=== PATIENT | male | born 1990 | race African-American/Black ===

== ENCOUNTER 2019-05-13 21:39 | Emergency (ER) | payer MEDICAID, OTHER ==
[2019-05-14] MEDS ORDERED: Ondansetron ODT TAB* 4 MG PO ONE (00:29)
[2019-05-14 01:01] LABS: ABS Basophils 0.1 10^3/ul (0-0.2); ABS Eosinophils 0.4 10^3/ul (0-0.6); ABS Lymphocytes 3.1 10^3/ul (1.0-4.8); ABS Monocytes 0.7 10^3/ul (0-0.8); ABS Neutrophils 5.6 10^3/ul (1.5-7.7); Eosinophil % 3.7 %; Hematocrit 46 % (42-52); Hemoglobin 15.7 g/dL (14.0-18.0); Lymphocyte % 31.9 %; Mean Corpuscular HGB Conc 34 g/dL (31-36); Mean Corpuscular Hemoglobin 30 pg (27-31); Mean Corpuscular Volume 87 fL (80-94); Mean Platelet Volume 8.5 fL (7.4-10.4); Nucleated Red Blood Cells % 0.1; Platelet Count 210 10^3/uL (150-450); Red Blood Count 5.29 10^6 /uL (4.18-5.48); Red Cell Distribution Width 14 % (10-15); White Blood Count 9.9 10^3/uL (3.5-10.8)
--- NOTE | 2019-05-14 01:14 | ED ---
Nausea/Vomiting/Diarrhea HPI - HPI Summary HPI Summary: Patient complains of abdominal pain and nausea and vomiting after eating 3 days. Abdominal pain described as epigastric, intermittent, lasting 10-20 minutes at a time after eating, worse /10. Patient has history of daily marijuana use. Patient states he has used Pepto-Bismol which provides relief. Denies fever, cough, sore throat, CP, SOB, diarrhea, change in urine, change in BM, penile or testicular symptoms. Medical history is asthma. Abdominal surgical history is none. - History of Current Complaint Chief Complaint: EDNauseaVomitDiarrh Stated Complaint: ABD PAIN PER PT Time Seen by Provider: 05/14/19 00:27 Hx Obtained From: Patient Onset/Duration: Gradual Onset, Lasting Days Timing: Intermittent Episodes Lasting: Severity Initially: Moderate Severity Currently: Moderate Pain Intensity: 7 Pain Scale Used: 0-10 Numeric Location: Diffuse Character: Cramping Aggravating Factor(s): Food Alleviating Factor(s): Antacids Vomiting Frequency: At Meal Time Vomiting Characteristics: Nonbilious Diarrhea Presence: No - Allergies/Home Medications Allergies/Adverse Reactions: Allergies Allergy/AdvReac Type Severity Reaction Status Date / Time No Known Allergies Allergy Verified 05/13/19 21:45 PMH/Surg Hx/FS Hx/Imm Hx Endocrine/Hematology History: Denies: Hx Anticoagulant Therapy Cardiovascular History: Denies: Hx Pacemaker/ICD History: Denies: Hx Dialysis Sensory History: Denies: Hx Eye Prosthesis Opthamlomology History: Denies: Hx Legally Blind EENT History: Denies: Hx Deafness Neurological History: Denies: Hx Dementia Infectious Disease History: No Infectious Disease History: Denies: Traveled Outside the [place] in Last 30 Days - Family History Known Family History: Positive: Non-Contributory - Social History Alcohol Use: Weekly Substance Use Type: Reports: Marijuana Substance Use Comment - Amount & Last Used: daily Smoking Status (MU): Heavy Every Day Tobacco Smoker Review of Systems Constitutional: Negative Eyes: Negative ENT: Negative Cardiovascular: Negative Respiratory: Negative Positive: Abdominal Pain, Vomiting, Nausea Genitourinary: Negative Musculoskeletal: Negative Skin: Negative Neurological: Negative Psychological: Normal All Other Systems Reviewed And Are Negative: Yes Physical Exam - Summary Physical Exam Summary: Abdomen soft nontender. No active vomiting here in the ED. Triage Information Reviewed: Yes Vital Signs On Initial Exam: Initial Vitals Temp Pulse Resp BP Pulse Ox 99.5 F 88 16 150/101 98 05/13/19 21:41 05/13/19 21:41 05/13/19 21:41 05/13/19 21:41 05/13/19 21:41 Vital Signs Reviewed: Yes Appearance: Positive: Well-Appearing Skin: Positive: Warm Head/Face: Positive: Normal Head/Face Inspection Eyes: Positive: Normal Neck: Positive: Supple Respiratory/Lung Sounds: Positive: Clear to Auscultation Cardiovascular: Positive: Normal Abdomen Description: Positive: Nontender Musculoskeletal: Positive: Normal Neurological: Positive: Normal Psychiatric: Positive: Normal AVPU Assessment: Alert - [place] Coma Scale Best Eye Response: 4 - Spontaneous Best Motor Response: 6 - Obeys Commands Best Verbal Response: 5 - Oriented Coma Scale Total: 15 Procedures - Sedation Patient Received Moderate/Deep Sedation with Procedure: No Diagnostics - Vital Signs Vital Signs Temp Pulse Resp BP Pulse Ox 05/13/19 23:44 98.7 F 87 16 153/87 99 05/13/19 21:41 99.5 F 88 16 150/101 98 - Laboratory Lab Results: Lab Results 05/14/19 Range/Units 00:53 WBC 9.9 (3.5-10.8) 10^3/uL RBC 5.29 (4.18-5.48) 10^6 /uL Hgb 15.7 (14.0-18.0) g/dL Hct 46 (42-52) % MCV 87 (80-94) fL MCH 30 (27-31) pg MCHC 34 (31-36) g/dL RDW 14 (10-15) % Plt Count 210 (150-450) 10^3/uL MPV 8.5 (7.4-10.4) fL Neut % (Auto) 56.4 % Lymph % (Auto) 31.9 % Green % (Auto) 6.9 % Eos % (Auto) 3.7 % Baso % (Auto) 1.1 % Absolute Neuts (auto) 5.6 (1.5-7.7) 10^3/ul Absolute Lymphs (auto) 3.1 (1.0-4.8) 10^3/ul Absolute Monos (auto) 0.7 (0-0.8) 10^3/ul Absolute Eos (auto) 0.4 (0-0.6) 10^3/ul Absolute Basos (auto) 0.1 (0-0.2) 10^3/ul Absolute Nucleated RBC 0.0 10^3/ul Nucleated RBC % 0.1 Result Diagrams: 05/14/19 00:53 05/14/19 00:53 Lab Statement: Any lab studies that have been ordered have been reviewed, and results considered in the medical decision making process. Naus/Vom/Diarrhea Course/Dx - Course Course Of Treatment: Patient complains of abdominal pain and nausea and vomiting after eating 3 days. Abdominal pain described as epigastric, intermittent, lasting 10-20 minutes at a time after eating, worse 05/14. Patient has history of daily marijuana use. Patient states he has used Pepto- Bismol which provides relief. Denies fever, cough, sore throat, CP, SOB, diarrhea, change in urine, change in BM, penile or testicular symptoms. Medical history is asthma. Abdominal surgical history is none. Vital signs within normal limits. Labs unremarkable. Patient having no active pain here in the ED. Patient states that he wishes to leave, will follow-up with urgent care in the morning. - Differential Dx/Diagnosis Provider Diagnosis: Nausea & vomiting Condition At Discharge: Stable Discharge ED - Sign-Out/Discharge Documenting (check all that apply): Patient Departure - Discharge Plan Condition: Stable Disposition: HOME Prescriptions: Ondansetron ODT TAB* [Zofran 4 MG Odt TAB*] 4 mg PO Q8H PRN 4 Days #14 tab.odt PRN Reason: Nausea Patient Education Materials: Acute Nausea and Vomiting (ED) Referrals: No Primary Care Phys,NOPCP [Primary Care Provider] - Joyce Preciado MD [Medical Doctor] - Additional Instructions: Take Zofran as directed for nausea. Follow-up with GI doctor Ozzy for further evaluation of difficulty swallowing food. Return to the ED for worsening symptoms. - Billing Disposition and Condition Condition: STABLE Disposition: Home
[2019-05-14 01:17] LABS: Albumin 3.9 g/dL (3.2-5.2); Albumin/Globulin Ratio 1.5 (1-3); BUN/Creatinine Ratio 14.3 (8-20); C Reactive Protein 1.58 mg/L (<8.01); EGFR African American 103.3 (>60); EGFR Non-African American 85.4 (>60); Globulin 2.6 g/dL (2-4); Potassium 3.9 mmol/L (3.5-5.0); Total Bilirubin 0.5 mg/dL (0.2-1.0); Total Protein 6.5 g/dL (6.4-8.9)
[2019-05-14 01:29] VITALS: BP 0/0
== END 2019-05-14 01:17 | disposition home or self-care (01) ==
LOC: ED 21:39
DX: R11.2 Nausea with vomiting, unspecified (principal); R10.9 Unspecified abdominal pain; F17.210 Nicotine dependence, cigarettes, uncomplicated
CPT/HCPCS: 36415; 80053; 83690; 85025; 86140; 99281; A9270-GY